=== PATIENT | male | born 1990 | race African-American/Black ===

== ENCOUNTER 2019-03-09 09:47 | Emergency (ER) | payer MEDICAID ==
[~2019-03-09] VITALS: Ht 182.9 cm; Wt 73.0 kg
[2019-03-09] MEDS ORDERED: IBUPROFEN 600MG TABLET PO ONE (11:15)
[2019-03-09] MEDS ORDERED: TETANUS, DIPHTHERIA, PERTUSSIS VAC/PF 0.5ML (>7YR OLD) IM ONE (11:15)
[2019-03-09] MEDS ORDERED: BACITRACIN ZINC OINT UDPKT TOP ONE (12:00)
[2019-03-09] MEDS ORDERED: BACITRACIN 15GM TUBE TOP ONE (12:30)
[2019-03-09] MEDS ORDERED: HYDROCODONE/ACETAMINOPHEN 5/325MG TABLET PO ONE (13:45)
[2019-03-09 14:07] VITALS: BP 118/78
== END 2019-03-09 14:44 | disposition home or self-care (01) ==
LOC: ER 09:47
DX: S63.054A Dislocation of other carpometacarpal joint of right hand, initial encounter (principal); V29.9XXA Motorcycle rider (driver) (passenger) injured in unspecified traffic accident, initial encounter; Y93.55 Activity, bike riding; Y92.410 Unspecified street and highway as the place of occurrence of the external cause
CPT/HCPCS: 73110; 73130; 73200; 90471; 90715; 99284; A4217

== ENCOUNTER 2020-03-05 16:27 | Emergency (ER) | payer MEDICAID ==
[~2020-03-05] VITALS: Ht 182.9 cm; Wt 70.0 kg
[2020-03-05] MEDS ORDERED: HYDROCODONE/ACETAMINOPHEN 5/325MG TABLET PO ONE (16:45)
[2020-03-05 18:16] LABS: BASOPHILS % 0.6 % (0.0-2.0); EOSINOPHILS % 2.3 % (0.0-5.0); HEMATOCRIT. 40.7 % (42.0-52.0); HEMOGLOBIN. 13.9 g/dL (14.0-18.0); LYMPHOCYTES % 30.3 % (20.0-50.0); MEAN CORPUSCULAR HEMOGLOBIN 30.2 pg (28.0-32.0); MEAN CORPUSCULAR VOLUME 88.2 fL (80.0-94.0); MEAN PLATELET VOLUME 8.6 fl (7.4-10.4); MONOCYTES % 10.3 % (2.0-8.0); NEUTROPHILS % 56.5 % (40.0-76.0); PLATELET 229 x1000/uL (130-400); RED BLOOD CELL COUNT 4.61 mill/uL (4.7-6.1); RED CELL DISTRIBUTION WIDTH 13.9 % (11.6-14.6)
[2020-03-05 18:24] LABS: CHLORIDE 107 mEq/L (98-107)
[2020-03-05] MEDS ORDERED: MORPHINE SULFATE 4 MG/ML CPJ (NOT FOR IM USE) IV ONE (19:00)
[2020-03-05] MEDS ORDERED: BACITRACIN ZINC OINT UDPKT TOP ONE (19:00)
[2020-03-05] MEDS ORDERED: MORPHINE SULFATE 2 MG/ML CPJ (NOT FOR IM USE) IV ONE (20:45)
[2020-03-05] MEDS ORDERED: CEFAZOLIN 1000MG PREMIX 50 ML IV ONE (21:30)
[2020-03-06 00:45] VITALS: BP 122/78
== END 2020-03-05 23:50 | disposition left against medical advice (07) ==
LOC: ER 16:27 → EDBEDREQTM 20:15 → EDBEDREQ 20:15 → ER 23:50 → CANBEDREQ 23:50
DX: S91.209A Unspecified open wound of unspecified toe(s) with damage to nail, initial encounter (principal); S50.311A Abrasion of right elbow, initial encounter; S50.312A Abrasion of left elbow, initial encounter; W18.30XA Fall on same level, unspecified, initial encounter; Y93.89 Activity, other specified; Y92.89 Other specified places as the place of occurrence of the external cause; Y99.8 Other external cause status
CPT/HCPCS: 36415; 73630; 80053; 85025; 96365; 96375; 96376; 99285; J0690; J2270

== ENCOUNTER 2021-10-06 06:56 | Emergency (ER) | payer MEDICAID, OTHER ==
[~2021-10-06] VITALS: Ht 165.1 cm; Wt 70.0 kg
[2021-10-06 09:52] VITALS: BP 120/84
== END 2021-10-06 12:10 | disposition home or self-care (01) ==
LOC: ER 08:29
DX: S00.03XA Contusion of scalp, initial encounter (principal); Y00.XXXA Assault by blunt object, initial encounter; Y93.89 Activity, other specified; Y92.89 Other specified places as the place of occurrence of the external cause
CPT/HCPCS: 99284